=== PATIENT | female | born 1955 | race Caucasian/White ===

== ENCOUNTER 2018-06-30 07:25 | Observation (INO) ==
[2018-06-30] MEDS ORDERED: Tetanus/Diphtheria Toxoid Adult Vaccine Inj 0.5 ML Vial IM ONE (08:09)
[2018-06-30] MEDS ORDERED: Sod Chloride 0.9% Inj 1,000 ML IV.CONT SCH (08:15)
--- NOTE | 2018-06-30 08:16 | ED ---
HPI General Chief Complaint: Syncope Stated Complaint: syncope this morning/hit head Time Seen by Provider: 06/30/18 07:59 Source: patient Mode of arrival: ambulatory Limitations: no limitations History of Present Illness HPI narrative: The patient is a 62-year-old female who presents to the emergency department after syncopal episode at home. The patient states she had an episode of diarrhea yesterday and then had the chills, thought she was coming down with an illness. The patient states she awakened at 6 AM to feed the cats and had a syncopal episode in the kitchen. The patient states she felt lightheaded, initially dropped to her knees, however, once again stood up. The patient then apparently passed out in front of the refrigerator and struck the back of her head. The patient thinks there was a loss of consciousness. The patient states she suffered a laceration to the posterior aspect of her head. Her last tetanus shot was greater than 5 years ago, she thinks 2011. The patient currently feels slightly lightheaded and fatigued, denies any significant headache, neck pain, chest pain, shortness of breath, or palpitations. She denies any history of arrhythmias. Symptoms are moderate and currently resolved except for the weakness and fatigue. MD complaint: loss of consciousness Onset (ago): minute(s) Prodromal symptoms: lightheaded Witnessed: yes - by other Context: standing up Injuries sustained associated with event: head Current symptoms: back to baseline Treatments prior to arrival: none Related Data Home Medications Medication Instructions Recorded Confirmed venlafaxine [Effexor XR] 75 mg PO DAILY 06/10/18 06/30/18 Allergies Allergy/AdvReac Type Severity Reaction Status Date / Time No Known Allergies Allergy Verified 06/30/18 07:40 Review of Systems ROS: all other systems reviewed are negative [facility] Social History Social History Substance History: No History of Abuse Second Hand Smoke Exposure: Yes Smoking Status: Heavy tobacco smoker Tobacco Type: Cigarettes How Often Do You Have a Drink Containing Alcohol: Never Recent Travel in [facility] within the Last 8 Weeks: No Recent Out of Country Travel within the Last 8 Weeks: No Immunization History Tetanus Immunization: >5 Years Tetanus Immunization Year if Known: 2011 Hx Influenza Vaccine This Season: No Exam Narrative Exam Narrative: GENERAL: Awake, alert, very pleasant 62-year-old female who appears her stated age and is in no acute respiratory distress. SKIN: Focused skin assessment warm/dry. HEAD: 2.5 cm transverse laceration mid occipital region with no active bleeding. EYES: Pupils equal and round. 3 mm bilateral and reactive. EOMs are intact. ENT: No nasal bleeding or discharge. Mucous membranes pink and moist. NECK: Trachea midline. No JVD. No tenderness of the cervical vertebrae. CARDIOVASCULAR: Regular rate and rhythm. No murmur appreciated. Heart rate in the 90s. RESPIRATORY: No accessory muscle use. Clear to auscultation. Breath sounds equal bilaterally. GASTROINTESTINAL: Abdomen soft, non-tender, nondistended. Hepatic and splenic margins not palpable. MUSCULOSKELETAL: No obvious deformities. No clubbing. No cyanosis. No edema. NEUROLOGICAL: Awake and alert. No obvious cranial nerve deficits. Motor grossly within normal limits. Normal speech. Nonfocal. Oriented x4. Follows commands without difficulty. PSYCHIATRIC: Appropriate mood and affect; insight and judgment normal. Procedures Laceration Laceration 1: Site: scalp Size (cm): 2.5 Description: linear Depth: simple, single layer Anesthetic used: lidocaine 1% Anesthesia technique:: local infiltration Amount (mL): 4 Pre-repair:: wound explored, irrigated extensively and deep structures intact Skin layer closed with: nissa Number of sutures:: 5 Course Initial Documented Vital Signs Temperature 98.9 F 06/30/18 07:36 Pulse Rate 100 H 06/30/18 07:36 Respiratory Rate 16 06/30/18 07:36 Blood Pressure 111/55 L 06/30/18 07:36 Pulse Oximetry 95 06/30/18 07:36 Last Documented Vital Signs Temperature 98.9 F 06/30/18 07:36 Pulse Rate 88 06/30/18 08:17 Respiratory Rate 16 06/30/18 08:17 Blood Pressure 110/61 06/30/18 08:17 Pulse Oximetry 96 06/30/18 08:17 Medical Decision Making [facility] Narrative Medical decision making narrative: IV was established, labs are drawn and sent, and the patient was placed on cardiac telemetry monitoring and continuous pulse oximetry monitoring. EKG was ordered and interpreted. Orthostatic vital signs were obtained. The patient was administered IV fluids. CT of the brain was obtained to evaluate for intracranial injury after syncopal episode resulting in a laceration. Orthostatic vital signs are unremarkable. CT of the brain was negative. Laboratory evaluation was unremarkable. Telemetry monitoring revealed no evidence of ectopy or arrhythmia. I had a discussion regarding 23- hour observation versus outpatient follow-up for syncope including echocardiogram and Holter monitor. After discussion the patient would prefer to stay as a 23-hour observation. The patient's primary physician is Dr. Chico Landis, therefore, [facility] was paged for 23-hour observation. I discussed the patient with Dr. Ghassan Funez who agrees with 23-hour observation. Medical Screen Exam Complete: Yes Emergency Medical Condition: Yes Differential Diagnosis Differential Diagnosis: Differential diagnosis includes orthostatic hypotension , orthostatic syncope, arrhythmia, pulmonary embolism, aortic stenosis, valvular disorder, electrolyte abnormality, dehydration. Lab Data Result diagrams: 06/30/18 08:10 06/30/18 08:10 Lab Results 06/30/18 06/30/18 Range/Units 08:10 08:10 CBC w Diff Auto diff final WBC 7.4 (4.0-11.0) th/mm3 RBC 5.22 (4.00-5.30) mil/mm3 Hgb 15.9 H (11.6-15.3) gm/dL Hct 46.8 H (35.0-46.0) % MCV 89.7 (80.0-100.0) fL MCH 30.5 (27.0-34.0) pg MCHC 34.0 (32.0-36.0) % RDW 13.1 (11.6-17.2) % Plt Count 320 (150-450) th/mm3 MPV 7.3 (7.0-11.0) fL Neut % (Auto) 74.9 H (16.0-70.0) % Lymph % (Auto) 17.2 (9.0-44.0) % [place] % (Auto) 4.9 (0.0-8.0) % Eos % (Auto) 0.6 (0.0-4.0) % Baso % (Auto) 2.4 H (0.0-2.0) % Neut # (Auto) 5.5 (1.8-7.7) th/mm3 Lymph # (Auto) 1.3 (1.0-4.8) th/mm3 [place] # (Auto) 0.4 (0.0-0.9) th/mm3 Eos # (Auto) 0.0 (0.0-0.4) th/mm3 Baso # (Auto) 0.2 (0.0-0.2) th/mm3 WBC Differential . Differential Comment . Sodium 135 L (136-145) meq/L Potassium 4.2 (3.5-5.1) meq/L Chloride 102 (98-107) meq/L Carbon Dioxide 25.2 (21.0-32.0) meq/L Anion Gap 8 (5-15) meq/L BUN 12 (7-18) mg/dL Creatinine 1.00 (0.50-1.00) mg/dL Estimated GFR 56 L (>89) mL/min Random Glucose 121 H (74-106) mg/dL Calcium 8.8 (8.5-10.1) mg/dL Magnesium 2.2 (1.5-2.5) mg/dL Total Bilirubin 0.5 (0.2-1.0) mg/dL AST 25 (15-37) U/L ALT 20 (10-53) U/L Alkaline Phosphatase 107 (45-117) U/L Troponin I Less than 0.02 L (0.02-0.05) ng/mL Total Protein 7.5 (6.4-8.2) g/dL Albumin 3.4 (3.4-5.0) g/dL Imaging Data Radiologist's impression: Head CT 06/30/18 08:09 CONCLUSION: 1. No acute intracranial abnormalities. . ECG Data EKG Prior to Arrival: No Attestation: I personally reviewed and interpreted this ECG as follows: Interpretation: EKG reveals normal sinus rhythm with a rate 83. No ischemic changes or ectopy noted. No evidence of Brugada syndrome or WPW. Discharge Plan Discharge Disposition Patient Disposition: 30 Still Patient Discharge Condition Condition: Stable Discharge Details Diagnosis: Syncope, Closed head injury, Laceration Physicians Team ED Provider: Lamont Horner Primary Care Provider: Alyssia Amaya Attending Provider: Ghassan Funez Status ED Status: Admitted Observation Patient
[2018-06-30 08:21] LABS: Baso # (Auto) 0.2 th/mm3 (0.0-0.2); Baso % (Auto) 2.4 % (0.0-2.0); Eos % (Auto) 0.6 % (0.0-4.0); Hematocrit 46.8 % (35.0-46.0); Hemoglobin 15.9 gm/dL (11.6-15.3); Lymph # (Auto) 1.3 th/mm3 (1.0-4.8); Lymph % (Auto) 17.2 % (9.0-44.0); Mean Corpuscular Hemoglobin 30.5 pg (27.0-34.0); Mean Corpuscular Volume 89.7 fL (80.0-100.0); Mean Platelet Volume 7.3 fL (7.0-11.0); Mono # (Auto) 0.4 th/mm3 (0.0-0.9); Mono % (Auto) 4.9 % (0.0-8.0); Neut # (Auto) 5.5 th/mm3 (1.8-7.7); Neut % (Auto) 74.9 % (16.0-70.0); Platelet Count 320 th/mm3 (150-450); Red Blood Count 5.22 mil/mm3 (4.00-5.30); Red Cell Distribution Width 13.1 % (11.6-17.2); White Blood Count 7.4 th/mm3 (4.0-11.0)
[2018-06-30 08:28] LABS: Chloride 102 meq/L (98-107); Sodium 135 meq/L (136-145)
[2018-06-30 08:29] LABS: Potassium 4.2 meq/L (3.5-5.1)
[2018-06-30 08:31] LABS: Calcium 8.8 mg/dL (8.5-10.1)
[2018-06-30 08:32] LABS: Albumin 3.4 g/dL (3.4-5.0); Anion Gap 8 meq/L (5-15); Blood Urea Nitrogen 12 mg/dL (7-18); Carbon Dioxide 25.2 meq/L (21.0-32.0); Glucose,Random 121 mg/dL (74-106); Magnesium 2.2 mg/dL (1.5-2.5)
[2018-06-30 08:35] LABS: Alanine Aminotransferase 20 U/L (10-53); Aspartate Aminotransferase 25 U/L (15-37); Glomerular Filtration Rate 56 mL/min (>89)
[2018-06-30 08:36] LABS: Total Protein 7.5 g/dL (6.4-8.2)
[2018-06-30 08:38] LABS: Alkaline Phosphatase 107 U/L (45-117)
--- NOTE | 2018-06-30 09:27 | CT ---
EXAM DATE: 06/30/2018 9:23 AM EDT AGE/SEX: 62 years / Female INDICATIONS: Syncopal episode this morning. Possibly hit back of head. CLINICAL DATA: This is the patient's initial encounter. Patient reports that signs and symptoms have been present for 1 day and indicates a pain score of 2/10. MEDICAL/SURGICAL HISTORY: Diverticulosis. Hypercholesterolemia. Gastroesophageal reflux disease. Gastritis. Cholecystectomy. section. Hiatal hernia repair. RADIATION DOSE: 52.79 CTDI (mGy) COMPARISON: No prior exams available for comparison. TECHNIQUE: CT of the head without contrast. Using automated exposure control and adjustment of the mA and/or kV according to patient size, radiation dose was kept as low as reasonably achievable to ob tain optimal diagnostic quality images. DICOM format image data is available electronically for revi ew and comparison. FINDINGS: Cerebrum: The ventricles are normal for age. No evidence of midline shift, mass lesion, hemorrhage or acute infarction. No extraaxial fluid collections are seen. Posterior Fossa: The cerebellum and brainstem are intact. The 4th ventricle is midline. The cerebe llopontine angle is unremarkable. Extracranial: The visualized portion of the orbits is intact. Skull: The calvaria is intact. No evidence of skull fracture. CONCLUSION: 1. No acute intracranial abnormalities. . Electronically signed by: Bernardino Branch MD 06/30/2018 9:26 AM EDT
[2018-06-30] MEDS ORDERED: Lidocaine 1%/Epinephrine 1:100,000 Inj 20 ML Vial INFILTRATN ONE (09:36)
--- NOTE | 2018-06-30 12:42 | P.HP ---
History of Present Illness Service: [facility] hospitalist service Primary Care Physician: Alyssia Amaya MD Chief Complaint: I passed out History of Present Illness: This is a 62-year-old white female came to the emergency room after experiencing a syncopal episode at home early this morning. She relates that she had some slight diarrhea yesterday afternoon with no blood or mucus and no nausea or vomiting. She felt like she was coming down with something last night with some chills during the night and decreased appetite yesterday. She had no significant cough. She did get up in the night to use the bathroom and states she felt just a little unsteady but went back to bed and slept well. After this morning awakening she was in the kitchen and then while standing felt a little lightheaded and then just kind of fell down to her knees and then as she tried to get back up she passed out on the kitchen floor and struck the back of her head. She does not know how long she was without consciousness but eventually she became awake and then subsequently went into her bedroom and got in bed. She then noticed the back of her head was uncomfortable and when she is placed her hand back there she noticed there was bleeding. She is subsequently was brought to the emergency room by her where she was evaluated. She was evaluated with a CT scan of the brain that showed no acute abnormalities. Her EKG showed no abnormal rhythm. Her blood work was unremarkable as well. She is admitted for observation to be monitored on telemetry. She denied any chest pain, shortness of breath, heart palpitations. She has had no prior history of syncopal episodes. She has had no history of heart disease and has had prior nuclear stress test done in 2014 and 2016 that were negative for ischemia. Medical history: Hyperlipidemia: She states she stopped her pravastatin earlier this month because of some myalgias. Anxiety for which she takes venlafaxine History of colon polyps Diverticulosis Hiatal hernia/gastroesophageal reflux disease Vitamin D insufficiency No heart disease, hypertension, chronic lung disease, thyroid disease, stroke, cancer, seizures. She she has had gastritis and esophagitis on prior EGDs. Surgical history: Laparoscopic cholecystectomy Laparoscopic hiatal hernia repair x1 Sinus surgery with sinusotomies and deviated septum repair earlier this month Colonoscopy 12/16/2014 that showed diverticulosis. Colonoscopy on 06/25/2016 that showed diverticulosis, tubular adenoma, hyperplastic polyp EGD on 12/16/14 and 06/25/16 that showed esophagitis and gastritis Allergies: She has had some myalgias with statin drugs Medications: Vitamin D 2000 units a day v Venlafaxine extended release 75 mg 1 a day She was on pravastatin 40 mg a day until earlier this month when she stopped it Family history: Her mother is still living at age 87 and has had hypertension and CHF Father at age 55 of lung cancer. He was also an alcoholic. Social history: She is . She does not use alcohol. She smokes half a pack a day of cigarettes and started around her early 20s. 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 - Diagnosis (1) Syncope (2) Closed head injury (3) Occipital scalp laceration (4) Anxiety (5) Hyperlipidemia (6) Diverticulosis (7) GERD (gastroesophageal reflux disease) (8) Hx of colonic polyps (9) Viral syndrome Review of Systems Review of systems: General: No fever. She has some chills last night. HEENT: No sore throat, earache. She has occasional drainage from her sinuses since her surgery earlier this month Cardiovascular: No chest pain, heart palpitations, shortness of breath, orthopnea. Pulmonary: No cough, shortness of breath, hemoptysis, pleuritic chest pain Gastrointestinal: No nausea, vomiting, abdominal pain, heartburn, indigestion, constipation, melena, rectal bleeding. : No dysuria, hematuria, urgency, frequency, incontinence. Musculoskeletal: Negative Psychiatry: No depression. Her anxiety is stable. Extremities: No edema Dermatology: No rash or itching Neuro: No confusion, motor weakness, numbness or tingling. The back of her head is a little sore where she struck it earlier today. [facility] - History History Provided By: Patient - Medical History Medical History: Medical History (Last Reviewed 06/30/18 @ 07:59 by Mari Porras RN) Diverticulosis Anxiety Chronic sinus infection Gastritis High cholesterol History of anesthesia reaction Hx of gastroesophageal reflux (GERD) Wears glasses - Surgical History Surgical History: Surgical History (Last Reviewed 06/30/18 @ 07:59 by Mari Porras RN) H/O colonoscopy History of esophagogastroduodenoscopy (EGD) History of repair of hiatal hernia Hx of section Hx of cholecystectomy - Tobacco History Second Hand Smoke Exposure: Yes Tobacco Use In Past 30 Days: Yes Smoking Status: Heavy tobacco smoker Tobacco Type: Cigarettes - Alcohol History How Often Do You Have a Drink Containing Alcohol: Never - Substance Use History Substance History: No History of Abuse - Travel History Recent Travel in the [place] Within the Last 8 Weeks: No Recent Travel Out of the Country Within the Last 8 Weeks: No - Immunization History Tetanus Immunization: >5 Years Tetanus Immunization Year if Known: 2011 Hx Influenza Vaccine This Season: No Medications and Allergies Active Medications: Active Medications Sodium Chloride (Ns Inj) 1,000 mls @ 125 mls/hr IV.CONT .Q8H KODI Stop: 06/30/18 16:14 Last Admin: 06/30/18 08:33 Dose: 125 mls/hr Allergies Allergy/AdvReac Type Severity Reaction Status Date / Time No Known Allergies Allergy Verified 06/30/18 07:40 Home Medications Medication Instructions Recorded Confirmed Type venlafaxine [Effexor XR] 75 mg PO DAILY 06/10/18 06/30/18 History Exam Vital signs: Vital Signs 06/30/18 07:36 06/30/18 08:00 06/30/18 08:17 Temperature 98.9 F Pulse Rate 100 H 88 88 Respiratory Rate 16 16 Blood Pressure 111/55 L 110/61 Pulse Oximetry 95 96 96 06/30/18 09:00 06/30/18 10:15 Temperature Pulse Rate 82 81 Respiratory Rate 16 16 Blood Pressure 109/58 L 109/55 L Pulse Oximetry 95 95 Intake & Output 06/29/18 06/30/18 06/30/18 18:59 06:59 18:59 Weight 64.1 kg Narrative: This is a pleasant white female in no distress. HEENT: Pupils equal, EOMs intact, sclera nonicteric, mouth without lesions, Nose without lesions. She has a laceration of the occipital region that is closed with 5 nissa Neck: No JVD, neck is supple, no carotid bruit. No pain on motion of her neck. No tenderness of the neck. Heart: Regular rate and rhythm without murmurs or gallops Lungs: Clear to auscultation Abdomen: Soft, nontender, no masses, no organomegaly Extremities: No edema, pulses palpated and 2 + both feet, no calf tenderness Skin: Without lesions or rash Neuro: Alert, oriented, normal motor exam, sensation intact, cranial nerves intact Results - Labs CBC & Chem 7: 06/30/18 08:10 06/30/18 08:10 Labs: Laboratory Results - last 24 hr 06/30/18 06/30/18 08:10 08:10 CBC w Diff Auto diff final WBC 7.4 RBC 5.22 Hgb 15.9 H Hct 46.8 H MCV 89.7 MCH 30.5 MCHC 34.0 RDW 13.1 Plt Count 320 MPV 7.3 Neut % (Auto) 74.9 H Lymph % (Auto) 17.2 [place] % (Auto) 4.9 Eos % (Auto) 0.6 Baso % (Auto) 2.4 H Neut # (Auto) 5.5 Lymph # (Auto) 1.3 [place] # (Auto) 0.4 Eos # (Auto) 0.0 Baso # (Auto) 0.2 WBC Differential . Differential Comment . Sodium 135 L Potassium 4.2 Chloride 102 Carbon Dioxide 25.2 Anion Gap 8 BUN 12 Creatinine 1.00 Estimated GFR 56 L Random Glucose 121 H Calcium 8.8 Magnesium 2.2 Total Bilirubin 0.5 AST 25 ALT 20 Alkaline Phosphatase 107 Troponin I Less than 0.02 L Total Protein 7.5 Albumin 3.4 - Imaging Impressions Head CT 06/30/18 08:09 CONCLUSION: 1. No acute intracranial abnormalities. . Caprini VTE Risk Assessment Caprini VTE Risk Assessment: Moderate/High Risk (score >= 2) Caprini Risk Assessment Model: Point Value = 1 Point Value = 2 Point Value = 3 Point Value = 5 Age 41-60 Minor surgery BMI > 25 kg/m2 Swollen legs Varicose veins or History of unexplained or recurrent spontaneous Oral contraceptives or hormone replacement Sepsis (< 1 month) Serious lung disease, including pneumonia (< 1 month) Abnormal pulmonary function Acute myocardial infarction Congestive heart failure (< 1 month) History of inflammatory bowel disease Medical patient at bed rest Age 61-74 Arthroscopic surgery Major open surgery (> 45 min) Laparoscopic surgery (> 45 min) Malignancy Confined to bed (> 72 hours) Immobilizing plaster cast Central venous access Age >= 75 History of VTE Family history of VTE Factor V Leiden Prothrombin [id number] Lupus anticoagulant Anticardiolipin antibodies Elevated serum homocysteine Heparin-induced thrombocytopenia Other congenital or acquired thrombophilia Stroke (< 1 month) Elective arthroplasty Hip, pelvis, or leg fracture Acute spinal cord injury (< 1 month) Prophylaxis Regimen: Total Risk Factor Score Risk Level Prophylaxis Regimen 0-1 Low Early ambulation 2 Moderate Order ONE of the following: *Sequential Compression Device (SCD) *Heparin 5000 units SQ BID 3-4 Higher Order ONE of the following medications: *Heparin 5000 units SQ TID *Enoxaparin/Lovenox 40 mg SQ daily (WT < 150 kg, CrCl > 30 mL/min) *Enoxaparin/Lovenox 30 mg SQ daily (WT < 150 kg, CrCl > 10-29 mL/min) *Enoxaparin/Lovenox 30 mg SQ BID (WT < 150 kg, CrCl > 30 mL/min) AND/OR *Sequential Compression Device (SCD) 5 or more Highest Order ONE of the following medications: *Heparin 5000 units SQ TID (Preferred with Epidurals) *Enoxaparin/Lovenox 40 mg SQ daily (WT < 150 kg, CrCl > 30 mL/min) *Enoxaparin/Lovenox 30 mg SQ daily (WT < 150 kg, CrCl > 10-29 mL/min) *Enoxaparin/Lovenox 30 mg SQ BID (WT < 150 kg, CrCl > 30 mL/min) AND *Sequential Compression Device (SCD) I will order SCDs for DVT prophylaxis. Assessment and Plan - Assessment (1) Syncope Code(s): R55 - Syncope and collapse Status: Acute (2) Closed head injury Code(s): S09.90XA - Unspecified injury of head, initial encounter Status: Acute (3) Occipital scalp laceration Code(s): S01.01XA - Laceration without foreign body of scalp, initial encounter Status: Acute (4) Anxiety Code(s): F41.9 - Anxiety disorder, unspecified Status: Acute (5) Hyperlipidemia Code(s): E78.5 - Hyperlipidemia, unspecified Status: Acute (6) Diverticulosis Code(s): K57.90 - Diverticulosis of intestine, part unspecified, without perforation or abscess without bleeding Status: Acute (7) GERD (gastroesophageal reflux disease) Code(s): K21.9 - Gastro-esophageal reflux disease without esophagitis Status: Acute (8) Hx of colonic polyps Code(s): Z86.010 - Personal history of colonic polyps Status: Acute (9) Viral syndrome Code(s): B34.9 - Viral infection, unspecified Status: Acute - Plan Plan: She will be monitored on telemetry. A 2D echocardiogram was ordered but I suspect there will be no evidence of any valvular heart problem since no murmurs were heard. I will order SCDs and RADHA hose for DVT prophylaxis. She can be ambulated with assistance. She has some subtle symptoms suggestive of a viral syndrome with minimal symptoms. This may have contributed to her episode this morning of a lightheadedness and subsequent syncope. We will give her some IV fluids throughout the day and night. She is admitted for observation and hopefully will be able to go home in the morning. Code Status: Full code Discharge Planning: The plan is to discharge her tomorrow morning if everything is stable and there are no significant abnormalities on any of her tests.
[2018-06-30] MEDS ORDERED: Acetaminophen 325 MG Tablet PO PRN (18:44)
[2018-06-30 22:05] LABS: Bilirubin,Urine Negative (Negative); Clarity,Urine Clear (Clear); Color,Urine Yellow (Yellw/Straw); Glucose,Urine (UA) Negative (Negative); Leukocyte Esterase,Urine Negative (Negative); Nitrite,Urine Negative (Negative); PH,Urine 5.5 (5.0-8.5); Specific Gravity,Urine 1.025 (1.002-1.035); Urobilinogen,Urine 0.2 mg/dL (Less than 2)
[2018-06-30 22:08] LABS: RBC,Urine 0-3 /hpf (0-3); WBC,Urine 0-5 /hpf (0-5)
--- NOTE | 2018-06-30 22:57 | ECG ---
Date Performed: 06/30/2018 Time Performed: 08:19:58 PTAGE: 62 years EKG: Sinus rhythm NORMAL ECG PREVIOUS TRACING : 06/10/2018 11.33 Since the previous tracing, no significant change noted DOCTOR: Licha Blas Interpretating Date/Time 06/30/2018 22:55:57
[2018-07-01 07:28] LABS: Baso # (Auto) 0.2 th/mm3 (0.0-0.2); Baso % (Auto) 3.2 % (0.0-2.0); Eos # (Auto) 0.1 th/mm3 (0.0-0.4); Eos % (Auto) 1.1 % (0.0-4.0); Hematocrit 42.9 % (35.0-46.0); Hemoglobin 14.7 gm/dL (11.6-15.3); Lymph # (Auto) 1.1 th/mm3 (1.0-4.8); Lymph % (Auto) 19.1 % (9.0-44.0); Mean Corpuscular HGB Conc 34.2 % (32.0-36.0); Mean Corpuscular Hemoglobin 30.9 pg (27.0-34.0); Mean Corpuscular Volume 90.3 fL (80.0-100.0); Mean Platelet Volume 7.4 fL (7.0-11.0); Mono # (Auto) 0.4 th/mm3 (0.0-0.9); Neut # (Auto) 3.9 th/mm3 (1.8-7.7); Neut % (Auto) 69.6 % (16.0-70.0); Platelet Count 262 th/mm3 (150-450); Red Blood Count 4.75 mil/mm3 (4.00-5.30); Red Cell Distribution Width 12.8 % (11.6-17.2); White Blood Count 5.8 th/mm3 (4.0-11.0)
[2018-07-01 07:37] LABS: Potassium 3.7 meq/L (3.5-5.1)
[2018-07-01 07:39] LABS: Calcium 8.4 mg/dL (8.5-10.1); Carbon Dioxide 22.8 meq/L (21.0-32.0)
--- NOTE | 2018-07-01 08:14 | P.PN ---
Subjective Interval history: Patient developed fever last night and I started her on amoxicillin for possible sinus infection. She had sinus surgery earlier in the month and was getting a lot of sinus drainage and she told me this morning that she is been having increased sinus pressure as well. She had been having some sweats and chills within 12 hours her syncopal episode. She had felt weak as well likely due to infectious process. She denies any cough. She had one episode of loose bowel movement the day prior to coming in to the hospital but has had none since then. She has been afebrile this morning. She has no other complaints. Physical Exam Vital signs: Vital Signs 06/30/18 08:17 06/30/18 09:00 06/30/18 10:15 Temperature Pulse Rate 88 82 81 Respiratory Rate 16 16 16 Blood Pressure 110/61 109/58 L 109/55 L Pulse Oximetry 96 95 95 06/30/18 12:17 06/30/18 17:26 06/30/18 20:00 Temperature 99.0 F 101.4 F H 101.6 F H Pulse Rate 85 96 H 94 H Respiratory Rate 18 18 16 Blood Pressure 125/67 129/71 116/65 Pulse Oximetry 96 95 94 L 07/01/18 00:00 Temperature 99.0 F Pulse Rate 83 Respiratory Rate 16 Blood Pressure 114/63 Pulse Oximetry 94 L Intake & Output 06/30/18 07/01/18 07/01/18 18:59 06:59 18:59 Intake Total 1800 / 1800 200 / 200 Balance 1800 / 1800 200 / 200 Weight 64.1 kg 64.1 kg Intake: IV 1000 / 1000 NS Inj 1,000 ML @ 125 mls/hr IV 1000 / 1000 .CONT .Q8H KODI Rx#:[id number] Oral 800 / 800 200 / 200 Other: # Voids 1 2 Narrative: This is a pleasant white female in no distress. HEENT: Pupils equal, EOMs intact, mouth without lesions. She has slight tenderness over her maxillary sinuses. Neck: No JVD, neck is supple Heart: Regular rate and rhythm without murmurs or gallops Lungs: Clear to auscultation Abdomen: Soft, nontender, no masses Extremities: No edema, pulses palpated, no calf tenderness Neuro: Alert, oriented, normal motor exam, sensation intact Results - Labs CBC & Chem 7: 07/01/18 07:13 07/01/18 07:13 Laboratory Results - last 24 hr 06/30/18 06/30/18 06/30/18 08:10 08:10 21:55 CBC w Diff Auto diff final WBC 7.4 RBC 5.22 Hgb 15.9 H Hct 46.8 H MCV 89.7 MCH 30.5 MCHC 34.0 RDW 13.1 Plt Count 320 MPV 7.3 Neut % (Auto) 74.9 H Lymph % (Auto) 17.2 [place] % (Auto) 4.9 Eos % (Auto) 0.6 Baso % (Auto) 2.4 H Neut # (Auto) 5.5 Lymph # (Auto) 1.3 [place] # (Auto) 0.4 Eos # (Auto) 0.0 Baso # (Auto) 0.2 WBC Differential . Differential Comment . Sodium 135 L Potassium 4.2 Chloride 102 Carbon Dioxide 25.2 Anion Gap 8 BUN 12 Creatinine 1.00 Estimated GFR 56 L Random Glucose 121 H Calcium 8.8 Magnesium 2.2 Total Bilirubin 0.5 AST 25 ALT 20 Alkaline Phosphatase 107 Troponin I Less than 0.02 L Total Protein 7.5 Albumin 3.4 Urine Color Yellow Urine Clarity Clear Urine pH 5.5 Ur Specific [place] 1.025 Urine Protein Negative Urine Glucose (UA) Negative Urine Ketones Negative Urine Occult Blood Moderate H Urine Nitrate Negative Urine Bilirubin Negative Urine Urobilinogen 0.2 Ur Leukocyte Esterase Negative Urine RBC 0-3 Urine WBC 0-5 Ur Squamous Epith Cells 6-10 H Micro UA Comment Culture not ind Ur Microscopic Review Microscopic reviewed Urine Culture Comments Culture not ind 07/01/18 07/01/18 07:13 07:13 CBC w Diff Auto diff final WBC 5.8 RBC 4.75 Hgb 14.7 Hct 42.9 MCV 90.3 MCH 30.9 MCHC 34.2 RDW 12.8 Plt Count 262 MPV 7.4 Neut % (Auto) 69.6 Lymph % (Auto) 19.1 [place] % (Auto) 7.0 Eos % (Auto) 1.1 Baso % (Auto) 3.2 H Neut # (Auto) 3.9 Lymph # (Auto) 1.1 [place] # (Auto) 0.4 Eos # (Auto) 0.1 Baso # (Auto) 0.2 WBC Differential . Differential Comment . Sodium 140 Potassium 3.7 Chloride 109 H Carbon Dioxide 22.8 Anion Gap 8 BUN 11 Creatinine 0.69 Estimated GFR 86 L Random Glucose 98 Calcium 8.4 L Magnesium Total Bilirubin AST ALT Alkaline Phosphatase Troponin I Total Protein Albumin Urine Color Urine Clarity Urine pH Ur Specific [place] Urine Protein Urine Glucose (UA) Urine Ketones Urine Occult Blood Urine Nitrate Urine Bilirubin Urine Urobilinogen Ur Leukocyte Esterase Urine RBC Urine WBC Ur Squamous Epith Cells Micro UA Comment Ur Microscopic Review Urine Culture Comments Microbiology 06/30/18 21:55 Nasal Wash Influenza Types A,B Antigen - Final Negative for FLU A and B antigen Infection due to influenza A or B cannot be ruled out since the antigen present in the sample may be below the detection limit of the test. - Imaging Impressions Head CT 06/30/18 08:09 CONCLUSION: 1. No acute intracranial abnormalities. . Assessment and Plan - Assessment (1) Syncope Code(s): R55 - Syncope and collapse Status: Acute (2) Sinusitis Code(s): J32.9 - Chronic sinusitis, unspecified Status: Acute (3) Closed head injury Code(s): S09.90XA - Unspecified injury of head, initial encounter Status: Acute (4) Occipital scalp laceration Code(s): S01.01XA - Laceration without foreign body of scalp, initial encounter Status: Chronic (5) Anxiety Code(s): F41.9 - Anxiety disorder, unspecified Status: Chronic (6) Hyperlipidemia Code(s): E78.5 - Hyperlipidemia, unspecified Status: Chronic (7) Diverticulosis Code(s): K57.90 - Diverticulosis of intestine, part unspecified, without perforation or abscess without bleeding Status: Chronic (8) GERD (gastroesophageal reflux disease) Code(s): K21.9 - Gastro-esophageal reflux disease without esophagitis Status: Chronic (9) Hx of colonic polyps Code(s): Z86.010 - Personal history of colonic polyps Status: Chronic - Plan Plan: I am going to discharge her today. I think her syncopal episode was related likely to infectious process causing her to feel weak and lightheaded. I do not feel that was in anyway related to a cardiac issue so I will cancel her 2D echocardiogram that is yet to be done. She developed a fever last night which is further evidence that she has no underlying infectious process. She is complaining of sinus pressure and has had increased sinus drainage since her sinus surgery earlier this month so I put her on amoxicillin last night when she developed fever with the presumption that she has an underlying sinus infection. She will be continued on amoxicillin 875 mg twice a day for 10 days. A UA done last night was negative and rapid flu test were negative also. She will resume her home medications. She will follow-up with her primary care physician (Dr. Sharma) within 1 week.
[2018-07-01 08:22] VITALS: BP 116/61; PULSE 88; RESP 20; TEMP 98.2; O2SAT 93
[2018-07-01] MEDS ORDERED: Venlafaxine XR 75 MG Capsule PO SCH (09:00)
== END 2018-07-01 09:47 | disposition home or self-care (01) ==
LOC: PHEDA 07:25 → PHED 07:25 → PH3 10:59
PROVIDERS: ADMIT Family Medicine; ATTEND Family Medicine